=== PATIENT | male | born 1980 | race African-American/Black ===

== ENCOUNTER 2017-05-23 16:54 | Emergency (ER) | payer BC ==
[2017-05-23] MEDS ORDERED: Tetan/Diph/Pertus SYR(Tdap)* 0.5 ML SYR(BOOSTRIX) use SYR IM ONE (17:02)
[2017-05-23] MEDS ORDERED: Lidocaine 2% PF * 5 ML VIAL INJ ONE (17:09)
[2017-05-23] MEDS ORDERED: Acetaminophen TAB* 325 MG PO ONE (17:14)
[2017-05-23] MEDS ORDERED: ceFAZolin 1 GM VIAL(*) 1 GM in NS 0.9% 50 ML* 50 ML IVPB ONE (17:48)
[2017-05-23] MEDS ORDERED: ceFAZolin 1 GM VIAL(*) ONE (17:52)
--- NOTE | 2017-05-23 18:01 | RAD ---
Indication: Left index finger injury. 3 views of the left index finger demonstrates partial amputation and fracture of the distal tuft of the left index finger. Soft tissue defect is noted. IMPRESSION: Partial amputation and comminuted fracture distal tuft of the distal phalanx of the left index finger. Soft tissue defect is present.
[2017-05-23] MEDS ORDERED: HYDROcodone/ACETAMIN 5-325 MG* 1 TAB PO ONE (19:18)
--- NOTE | 2017-05-23 19:18 | UC ---
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 CUT TO TIP OF LEFT INDEX FINGER. TETANUS STATUS UNKNOWN. LEFT HAND DOMINANT - History Of Current Complaint Chief Complaint: UCLaceration Stated Complaint: FINGER LAC Time Seen by Provider: 05/23/17 17:02 Hx Obtained From: Patient Laceration Location: Finger - LEFT SECOND Mechanism Of Injury: Blunt Trauma Onset/Duration: Sudden Onset, Lasting Minutes, Still Present Severity: Severe Aggravating Factors: Position, Movement, Other: - TOUCH Related History: Dominant Hand Left - Allergies/Home Medications Allergies/Adverse Reactions: Allergies Allergy/AdvReac Type Severity Reaction Status Date / Time No Known Allergies Allergy Verified 05/23/17 17:01 PMH/Surg Hx/FS Hx/Imm Hx Previously Healthy: Yes - Surgical History Surgical History: None - Family History Known Family History: Negative: Blood Disorder - Social History Occupation: Employed Full-time Lives: With Family Alcohol Use: Occasionally Substance Use Type: None Smoking Status (MU): Never Smoked Tobacco Review of Systems Constitutional: Negative Skin: Other - LACERATION LEFT FINGER Eyes: Negative ENT: Negative Respiratory: Negative Cardiovascular: Negative Gastrointestinal: Negative Genitourinary: Negative Motor: Negative Neurovascular: Negative Musculoskeletal: Negative Neurological: Negative Psychological: Negative All Other Systems Reviewed And Are Negative: Yes Physical Exam Triage Information Reviewed: Yes Appearance: Well-Appearing, No Pain Distress, Well-Nourished Vital Signs: Initial Vital Signs Temp 96.9 F 05/23/17 16:57 Pulse 97 05/23/17 16:57 Resp 18 05/23/17 16:57 BP 186/100 05/23/17 16:57 Pulse Ox 100 05/23/17 16:57 Vital Signs Reviewed: Yes Eye Exam: Normal ENT Exam: Normal ENT: Positive: Normal ENT inspection Dental Exam: Normal Neck exam: Normal Neck: Positive: Supple, Nontender Respiratory Exam: Normal Respiratory: Positive: Chest non-tender, Lungs clear, Normal breath sounds, No respiratory distress Cardiovascular Exam: Normal Cardiovascular: Positive: RRR, No Murmur, Pulses Normal, Brisk Capillary Refill Abdominal Exam: Normal Musculoskeletal Exam: Normal Musculoskeletal: Positive: Strength Intact, ROM Intact, No Edema Neurological Exam: Normal Psychological Exam: Normal Skin: Positive: Other - LACERATION OF DISTAL LEFT SECOND FINGER Laceration Repair - Laceration Repair 1 Description: Irregular Laceration Size After Repair: Length (cm) - 3, Width (mm) - 4, Depth (mm) - 10 Type Injection: Digital Anesthesia Used: 2.0% Lido Cleansing Completed Via Routine Prep: Yes Irrigation With Pressure Irrigation Device: Yes Closure Material: Sutures - #7 (2X VERTICAL MATRESS, 5X SIMPLE INTERRUPTED) 4-0 PROLENE Closure Method: Single Layer Suture Of: Skin, SQ Suture Type: Prolene Laceration Course/Dx - Differential Dx - Laceration/Wound Differental Diagnoses: Cellulitis, Foreign Body, Fracture, Joint Infection, Laceration Provider Diagnoses: OPEN DISPLACED DISTAL TUFT FRACTURE OF LEFT SECOND FINGER, WITH LACERATION REPAIR; TETANUS PROPHYLAXIS - Physician Notification/Consults Discussed Patient Care With: Chirag Payne Time Discussed With Above Provider: 17:40 Instructed by Provider To: Have Pt Call For Appt. Discharge - Discharge Plan Condition: Stable Disposition: HOME Prescriptions: Cephalexin CAP* [Keflex CAP*] 500 mg PO QID #40 cap HYDROcodone/ACETAMIN 5-325 MG* [Rosharon 5-325 TAB*] 1 tab PO Q8H PRN #15 tab MDD three tabs PRN Reason: Pain Patient Education Materials: Finger Fracture (ED), Finger Laceration (ED), Hypertension (ED) Forms: *Work Release Referrals: [facility] [place] [facility] REFERRAL [Outside] - 1 Week Chirag Payne MD [Medical Doctor] - 2 Days No Primary Care Phys,NOPCP [Primary Care Provider] - Additional Instructions: PLEASE CALL TOMORROW TO SET UP AN APPOINTMENT WITH DR PAYNE'S SERVICE REGARDING YOUR OPEN FRACTURE. PLEASE CALL OR ESTABLISH YOUR PRIMARY CARE PHYSICIAN WITHIN THE WEEK TO DISCUSS YOUR ELEVATED BLOOD PRESSURE. Images Hands: 1 - LACERATION HERE 2 - LACERATION HERE
[2017-05-23 19:47] VITALS: BP 142/95
== END 2017-05-23 19:30 | disposition home or self-care (01) ==
LOC: UCEAST 16:54
DX: S62.631B Displaced fracture of distal phalanx of left index finger, initial encounter for open fracture (principal); S61.211A Laceration without foreign body of left index finger without damage to nail, initial encounter; W45.8XXA Other foreign body or object entering through skin, initial encounter; Y93.E9 Activity, other interior property and clothing maintenance; Y92.9 Unspecified place or not applicable; Z23 Encounter for immunization
CPT/HCPCS: 12002; 73140; 90471; 90715; 96365; 99203; A9270-GY; G0463; J0690